=== PATIENT | female | born 1965 | race Caucasian/White ===

== ENCOUNTER 2017-12-01 06:31 | Emergency (ER) | payer BC ==
[2017-12-01] MEDS ORDERED: Ibuprofen ADULT LIQ* 600 MG/30 ML UDC PO ONE (07:10)
[2017-12-01] MEDS ORDERED: Ibuprofen PED LIQ 100 MG/5 ML UDC ONE (07:14)
[2017-12-01] MEDS ORDERED: Ibuprofen PED LIQ 100 MG/5 ML UDC PO ONE (07:16)
[2017-12-01] MEDS ORDERED: Iodixanol* (CONTRAST) 320 MG/ML 100 ML SDV IV ONE (07:37)
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
[2017-12-01 09:13] VITALS: BP 119/67
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
== END 2017-12-01 09:13 | disposition home or self-care (01) ==
LOC: ED 06:31
DX: S20.212A Contusion of left front wall of thorax, initial encounter (principal); V43.62XA Car passenger injured in collision with other type car in traffic accident, initial encounter; Y92.9 Unspecified place or not applicable
CPT/HCPCS: 70450; 71260; 72125; 72128; 72131; 74177; 93005; 99283; A9270-GY; Q9967

== ENCOUNTER 2017-12-02 09:22 | Emergency (ER) | payer BC, OTHER ==
--- NOTE | 2017-12-02 10:30 | RAD ---
HISTORY: R knee swelling COMPARISONS: None VIEWS: 4 , Frontal, lateral, axial, and oblique views of the right knee FINDINGS: BONE DENSITY: Normal. BONES: There is no displaced fracture. JOINTS: There is no arthropathy. There is a trace suprapatellar joint effusion without lipohemarthrosis. ALIGNMENT: There is no dislocation. SOFT TISSUES: There is prepatellar soft tissue swelling OTHER FINDINGS: None. IMPRESSION: SOFT TISSUE SWELLING. NO ACUTE OSSEOUS INJURY. IF SYMPTOMS PERSIST, RECOMMEND REPEAT IMAGING.
[2017-12-02 11:11] VITALS: BP 130/71
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
== END 2017-12-02 11:08 | disposition home or self-care (01) ==
LOC: ED 09:22
DX: S80.01XA Contusion of right knee, initial encounter (principal); M25.561 Pain in right knee; R60.9 Edema, unspecified; X58.XXXA Exposure to other specified factors, initial encounter; Y92.9 Unspecified place or not applicable
CPT/HCPCS: 99282

== ENCOUNTER 2019-04-03 12:11 | Emergency (ER) | payer BC ==
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
[2019-04-03 13:04] LABS: ABS Basophils 0.1 10^3/ul (0-0.2); ABS Lymphocytes 0.8 10^3/ul (1.0-4.8); ABS Monocytes 0.2 10^3/ul (0-0.8); ABS Neutrophils 2.8 10^3/ul (1.5-7.7); Eosinophil % 0.8 %; Hematocrit 42 % (35-47); Hemoglobin 14.6 g/dL (12.0-16.0); Lymphocyte % 21.4 %; Mean Corpuscular HGB Conc 35 g/dL (31-36); Mean Corpuscular Hemoglobin 32 pg (27-31); Mean Corpuscular Volume 90 fL (80-97); Mean Platelet Volume 7.7 fL (7.4-10.4); Nucleated Red Blood Cells % 0.1; Platelet Count 245 10^3/uL (150-450); Red Blood Count 4.61 10^6 /uL (3.70-4.87); Red Cell Distribution Width 13 % (10-15); White Blood Count 3.9 10^3/uL (3.5-10.8)
[2019-04-03 13:23] LABS: ALT 42 U/L (7-52); AST 27 U/L (13-39); Albumin 4.5 g/dL (3.2-5.2); Alkaline Phosphatase 68 U/L (34-104); Anion Gap 6 mmol/L (2-11); Blood Urea Nitrogen 13 mg/dL (6-24); C Reactive Protein < 1.00 mg/L (<8.01); CO2 Carbon Dioxide 24 mmol/L (22-32); Calcium 9.1 mg/dL (8.6-10.3); Chloride 109 mmol/L (101-111); EGFR African American 58.2 (>60); EGFR Non-African American 48.1 (>60); Globulin 2.2 g/dL (2-4); Glucose 97 mg/dL (70-100); Sodium 139 mmol/L (135-145); Total Protein 6.7 g/dL (6.4-8.9)
[2019-04-03] MEDS ORDERED: Iodixanol* (CONTRAST) 320 MG/ML 100 ML SDV IV ONE (13:25)
[2019-04-03 13:29] LABS: Urine Appearance Cloudy; Urine Bilirubin Negative (Negative); Urine Blood 1+ (Negative); Urine Color Yellow; Urine Glucose Negative (Negative); Urine Ketones Negative (Negative); Urine Nitrite Negative (Negative); Urine Protein Negative (Negative); Urine Specific Gravity 1.011 (1.010-1.030); Urine Urobilinogen Negative (Negative)
[2019-04-03 13:34] LABS: Urine Bacteria 1+ (Absent); Urine Red Blood Cell Trace(0-2/hpf) (Absent); Urine Squamous Epithelial Cell Present (Absent); Urine White Blood Cell Trace(0-5/hpf) (Absent)
[2019-04-03 15:18] VITALS: BP 120/73
== END 2019-04-03 15:18 | disposition home or self-care (01) ==
LOC: ED 12:11
DX: H02.401 Unspecified ptosis of right eyelid (principal); R51 Headache
CPT/HCPCS: 36415; 70496; 70498; 80053; 81003; 81015; 85025; 86140; 87086; 99282; Q9967